=== PATIENT | female | born 1985 | race Caucasian/White ===

== ENCOUNTER 2020-01-24 23:45 | Outpatient (CLI) | payer BC ==
[~2020-01-24] VITALS: Ht 165.1 cm; Wt 63.6 kg
[~2020-01-24 23:45] MED LIST: MOTRIN 600600 MG/TAB PO; PERCOCET 325 MG1 TA2 PO; PRENATAL1 TA1 PO; TYLENOL PM EXTR1 TA1 PO
[2020-01-25 00:09] VITALS: BP 124/66; PULSE 67; TEMP 98.6
[2020-01-25 00:50] VITALS: BP 119/73; PULSE 70
[2020-01-25 01:23] LABS: COLLECTION METHOD CLEAN CATCH
[2020-01-25 01:28] LABS: MUCOUS Present /lpf; PH 5 (5-8); SQUAMOUS EPITHELIAL 0-2 /hpf; URINE APPEARANCE Clear; URINE BACTERIA Rare /hpf; URINE BILIRUBIN Negative (NEGATIVE); URINE BLOOD Negative (NEGATIVE); URINE COLOR Straw; URINE GLUCOSE Negative (NEGATIVE); URINE KETONE Negative (NEGATIVE); URINE LEUKOCYTE ESTERASE Negative (NEGATIVE); URINE NITRATE Negative (NEGATIVE); URINE PROTEIN(semi-quant) Negative (NEGATIVE); URINE RBC None Seen /hpf; URINE UROBILINOGEN Negative (NEGATIVE); URINE WBC 0-2 /hpf
== END 2020-01-25 01:55 | disposition home or self-care (01) ==
LOC: LDRO 23:45
PROVIDERS: Obstetrics & Gynecology
DX: O26.893 Other specified pregnancy related conditions, third trimester (principal); Z3A.36 36 weeks gestation of pregnancy

== ENCOUNTER 2020-02-02 12:00 | Outpatient (CLI) | payer BC ==
[~2020-02-02] VITALS: Ht 165.1 cm; Wt 64.1 kg
--- NOTE | 2020-02-02 12:00 | NUR ---
Pt arrives on unit ambulatory with spouse. States "strong" ctx at [id number] last night, but since have decreased. Pt states decreased FM and reports increase of "mucuos plug." Changed into clean gown. EFM and toco applied. VSS. SVE per this RN -2. Reactive FHR strip. Admission assessment completed. Pt updated on POC. Safety reviewed. Dr. Turcios notified. See physician notification. Bed locked in low position. Call light within reach.
[2020-02-02 12:04] VITALS: BP 127/81; PULSE 77; TEMP 97.5
[2020-02-02 13:00] VITALS: BP 127/81; PULSE 77; TEMP 97.5
== END 2020-02-02 13:05 | disposition home or self-care (01) ==
LOC: LDRO 12:00
DX: O62.9 Abnormality of forces of labor, unspecified (principal); Z3A.37 37 weeks gestation of pregnancy